=== PATIENT | female | born 1965 | race Caucasian/White ===

== ENCOUNTER 2017-03-04 11:39 | Emergency (ER) | payer OTHER, SELFPAY ==
[~2017-03-04] VITALS: Ht 154.9 cm; Wt 61.2 kg
[~2017-03-04 11:39] MED LIST: BYST5TAB PO; IBUP600T26 PO; PRIL20CA PO; PRIN10TA PO; PROZAC PO; VICO5TAB PO
[2017-03-04] MEDS ORDERED: ASPI81TA21 PO (11:49)
[2017-03-04] MEDS ORDERED: BISO5TAB5 (11:49)
[2017-03-04 12:09] LABS: BASO % 0.3 % (0.0-1.0); EOS # 0.2 K/mm3 (0.0-0.50); EOS % 1.6 % (0.0-3.0); LARGE UNSTAINED CELL # 0.2 K/mm3 (0.0-0.4); LARGE UNSTAINED CELL % 1.8 % (0.0-4.0); LYMPH # 4.2 K/mm3 (1.5-4.5); LYMPH % 35.8 % (24.0-44.0); MEAN CORPUSCULAR HEMOGLOBIN 31.3 pg (27.0-33.0); MEAN CORPUSCULAR HGB CONC 33.7 g/dl (32.0-36.5); MEAN CORPUSCULAR VOLUME 92.8 fl (80.0-96.0); MONO # 0.6 K/mm3 (0.0-0.8); MONO % 5.7 % (0.0-5.0); NEUTROPHILS # 6.1 K/mm3 (1.8-7.7); NEUTROPHILS % 54.8 % (36.0-66.0); PLATELET COUNT, AUTOMATED 250 k/mm3 (150-450); RED CELL DISTRIBUTION WIDTH 12.6 % (11.5-14.5); WHITE BLOOD COUNT 11.1 K/mm3 (4.0-10.0)
--- NOTE | 2017-03-04 12:17 | REP ---
Clinical: Chest pain . Comparison: 07/09/2009 . Findings: The mediastinum and cardiac silhouette are stable and within normal limits for portable technique. The lung win are clear without acute consolidation, effusion, or pneumothorax. Skeletal structures are stable and calcific tendinopathy involving the right shoulder is again noted. Impression: Normal portable chest x-ray Signed by Leoncio Dunn MD 03/04/2017 12:09 P
[2017-03-04 12:40] LABS: ALBUMIN 3.8 GM/DL (3.2-5.2); ALKALINE PHOSPHATASE 122 U/L (45-117); ALT/SGPT 26 U/L (12-78); ANION GAP 7 MEQ/L (8-16); AST/SGOT 14 U/L (15-37); BILIRUBIN,DIRECT < 0.1 MG/DL (0.0-0.2); BILIRUBIN,TOTAL 0.4 MG/DL (0.2-1.0); BLOOD UREA NITROGEN 15 MG/DL (7-18); CALCIUM LEVEL 9.7 MG/DL (8.5-10.1); CARBON DIOXIDE LEVEL 26 MEQ/L (21-32); CHLORIDE LEVEL 103 MEQ/L (98-107); CREATININE FOR GFR 0.59 MG/DL (0.55-1.02); GLOMERULAR FILTRATION RATE > 60.0 (>51); GLUCOSE, FASTING 97 MG/DL (70-105); SODIUM LEVEL 136 MEQ/L (136-145); TOTAL PROTEIN 7.6 GM/DL (6.4-8.2)
--- NOTE | 2017-03-04 14:18 | ECGEPIP ---
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
[2017-03-04 16:58] VITALS: BP 124/79
--- NOTE | 2017-03-04 22:10 | ECGEPIP ---
Stationary ECG Study [facility] - ED Test Date: 2017-03-04 Pat Name: JENNIFER SANTIAGO Department: Room: - Gender: F Neurology Director: allyson : 1965 Requested By: KATY HOU Order Number: [id number] Reading MD: Jose Miguel Montiel Measurements Intervals [place] Rate: 74 P: 42 HI: 150 QRS: 24 QRSD: 82 T: 48 QT: 355 QTc: 396 Interpretive Statements SINUS RHYTHM BENIGN EARLY REPOLARIZATION Electronically Signed On 03-04-2017 22:10:31 EDT by Jose Miguel Montiel
== END 2017-03-04 17:00 | disposition home or self-care (01) ==
LOC: M ED 12:18
DX: R07.89 Other chest pain (principal); R06.02 Shortness of breath; I10 Essential (primary) hypertension; F41.9 Anxiety disorder, unspecified; F32.9 Major depressive disorder, single episode, unspecified; F17.210 Nicotine dependence, cigarettes, uncomplicated; N95.1 Menopausal and female climacteric states; Z79.899 Other long term (current) drug therapy; Z91.041 Radiographic dye allergy status; Z88.4 Allergy status to anesthetic agent; Z88.5 Allergy status to narcotic agent; Z88.8 Allergy status to other drugs, medicaments and biological substances

== ENCOUNTER → 2017-08-06 | Outpatient (REF) | payer OTHER ==
[~2017-08-06] MED LIST changes: +ASPI81TA21 PO; +BISO5TAB5
[2017-08-06 14:57] LABS: PROGESTERONE 0.3 NG/ML
[2017-08-06 14:59] LABS: ESTRADIOL < 19.0 PG/ML; FOLLICLE STIMULATING HORMONE 58.7 mIU/mL
[2017-08-06 15:00] LABS: FREE T4 2.09 NG/DL (0.76-1.46)
[2017-08-10 00:07] LABS: ESTRONE SERUM 88 pg/mL (.)
== END ==
LOC: M LAB REF 13:06
PROVIDERS: ATTEND Obstetrics & Gynecology
DX: N95.1 Menopausal and female climacteric states (principal)

== ENCOUNTER → 2017-10-26 | Outpatient (REF) | payer OTHER ==
[2017-10-26 17:07] LABS: THYROXINE (T4) 15.6 UG/DL (4.5-12.0)
[2017-10-27 08:49] LABS: THYROID PEROXIDASE ANTIBODY < 28.0 U/ML (<60.0)
[2017-10-27 08:50] LABS: TOTAL T3 203.7 NG/DL (60.0-181.0)
== END ==
LOC: M SFHCCLAY 10:25
DX: R94.6 Abnormal results of thyroid function studies (principal)

== ENCOUNTER → 2018-07-15 | Outpatient (REF) | payer OTHER ==
[2018-07-15 11:39] LABS: BASO % 0.3 % (0.0-1.0); EOS # 0.1 10^3/uL (0.0-0.50); EOS % 1.3 % (0.0-3.0); HEMOGLOBIN 13.8 g/dl (12.0-15.5); IMMATURE GRANULOCYTE % 0.2 % (0-3.0); LYMPH # 4.3 10^3/uL (1.5-4.5); LYMPH % 44.6 % (24.0-44.0); MEAN CORPUSCULAR HEMOGLOBIN 31.2 pg (27.0-33.0); MEAN CORPUSCULAR HGB CONC 33.7 g/dl (32.0-36.5); MEAN CORPUSCULAR VOLUME 92.8 fl (80.0-96.0); MONO % 9.9 % (0.0-5.0); NEUTROPHILS # 4.2 10^3/uL (1.8-7.7); NEUTROPHILS % 43.7 % (36.0-66.0); PLATELET COUNT, AUTOMATED 254 10^3/uL (150-450); RED BLOOD COUNT 4.42 10^6/uL (4.00-5.40); RED CELL DISTRIBUTION WIDTH 12.5 % (11.5-14.5); WHITE BLOOD COUNT 9.6 10^3/uL (4.0-10.0)
[2018-07-15 11:43] LABS: AMORPHOUS SEDIMENT SMALL (NEGATIVE); APPEARANCE, URINE HAZY (CLEAR); BACTERIA, URINE AUTO NEGATIVE (NEGATIVE); BILIRUBIN, URINE AUTO NEGATIVE (NEGATIVE); BLOOD, URINE BLOOD 2+ (NEGATIVE); COLOR, URINE YELLOW (YELLOW); GLUCOSE, URINE (UA) AUTO NEGATIVE (NEGATIVE); KETONE, URINE AUTO NEGATIVE (NEGATIVE); LEUKOCYTE ESTERASE, URINE AUTO NEGATIVE (NEGATIVE); MUCUS, URINE SMALL (NEGATIVE); NITRITE, URINE AUTO NEGATIVE (NEGATIVE); PROTEIN, URINE AUTO NEGATIVE (NEGATIVE); RBC, URINE AUTO 3 /HPF (0-3); SPECIFIC GRAVITY URINE AUTO 1.025 (1.002-1.035); SQUAMOUS EPITHELIAL CELL UR AU 6 /HPF (0-6); WBC, URINE AUTO 1 /HPF (0-3)
[2018-07-15 11:54] LABS: INR 0.91; PROTHROMBIN TIME 12.3 SECONDS (12.1-14.4)
[2018-07-15 11:55] LABS: PARTIAL THROMBOPLASTIN TIME 29.9 SECONDS (25.4-37.6)
[2018-07-15 12:04] LABS: CONTROL LINE HCG INT CTR LINE PRESENT; HCG, SERUM QUALITATIVE NEGATIVE (NEGATIVE)
[2018-07-15 12:06] LABS: ANION GAP 8 MEQ/L (8-16); BLOOD UREA NITROGEN 17 MG/DL (7-18); CALCIUM LEVEL 9.2 MG/DL (8.5-10.1); CARBON DIOXIDE LEVEL 26 MEQ/L (21-32); CHLORIDE LEVEL 106 MEQ/L (98-107); CREATININE FOR GFR 0.58 MG/DL (0.55-1.30); GLOMERULAR FILTRATION RATE > 60.0 (>51); GLUCOSE, FASTING 94 MG/DL (70-100); POTASSIUM SERUM 4.8 MEQ/L (3.5-5.1); SODIUM LEVEL 140 MEQ/L (136-145)
== END ==
LOC: M SFHCCLAY 08:54
DX: Z01.818 Encounter for other preprocedural examination (principal)

== ENCOUNTER → 2018-12-27 | Outpatient (REF) | payer OTHER, SELFPAY ==
[2018-12-27 17:01] LABS: HEMATOCRIT 44.5 % (36.0-47.0); HEMOGLOBIN 14.7 g/dl (12.0-15.5); MEAN CORPUSCULAR HEMOGLOBIN 30.7 pg (27.0-33.0); MEAN CORPUSCULAR VOLUME 92.9 fl (80.0-96.0); PLATELET COUNT, AUTOMATED 275 10^3/uL (150-450); RED BLOOD COUNT 4.79 10^6/uL (4.00-5.40)
[2018-12-27 17:11] LABS: ALBUMIN 4.4 GM/DL (3.2-5.2); ALT/SGPT 21 U/L (12-78); BILIRUBIN,TOTAL 0.4 MG/DL (0.2-1.0); BLOOD UREA NITROGEN 8 MG/DL (7-18); CALCIUM LEVEL 9.1 MG/DL (8.5-10.1); CARBON DIOXIDE LEVEL 30 MEQ/L (21-32); CHLORIDE LEVEL 103 MEQ/L (98-107); CREATININE FOR GFR 0.72 MG/DL (0.55-1.30); FREE T4 0.89 NG/DL (0.76-1.46); GLOMERULAR FILTRATION RATE > 60.0 (>51); GLUCOSE, FASTING 96 MG/DL (70-100); SODIUM LEVEL 136 MEQ/L (136-145); THYROID STIMULATING HORMONE 0.241 uIU/ML (0.358-3.740); TOTAL PROTEIN 8.5 GM/DL (6.4-8.2)
[2018-12-27 18:44] LABS: ATYPICAL LYMPH 18 % (0-5); EOSINOPHILS 1 % (0-5); LYMPHOCYTES 34 % (16-52); MONOCYTES 6 % (0-8); NEUTROPHILS 40 % (35-75); PLATELET ESTIMATE NORMAL (NORMAL); SMUDGE CELLS 1+
[2018-12-30 00:08] LABS: ANA (HEP2) Negative (.); Lyme Disease IgG/IgM Antibodie <0.91 ISR (0.00-0.90); Lyme Disease IgM Ab Quantitati <0.80 index (0.00-0.79)
== END ==
LOC: M SFHCCLAY 09:59
PROVIDERS: ATTEND Nurse Practitioner Family
DX: L29.9 Pruritus, unspecified (principal); N63.31 Unspecified lump in axillary tail of the right breast; R59.0 Localized enlarged lymph nodes

== ENCOUNTER → 2019-01-06 | Outpatient (CLI) | payer OTHER ==
--- NOTE | 2019-01-06 14:31 | REP ---
Clinical: Right flank pain . Comparison: 03/04/2017 . Technique: PA and lateral. Findings: The mediastinum and cardiac silhouette are normal. The lung win are clear and without acute consolidation, effusion, or pneumothorax. The skeletal structures are intact and normal. Evidence of prior cervical fixation. Impression: 1. No acute cardiopulmonary process.
--- NOTE | 2019-01-06 15:14 | REP ---
LUMBAR SPINE, FIVE VIEWS: HISTORY: Back pain. There is on acute fracture or subluxation. The L3-4 through L5-S1 intervertebral discs are decreased in height consistent with disc degeneration. Osteophytes are present throughout the lumbar spine. There is narrowing of the right L5-S1 facet joint. IMPRESSION: Degenerative change as described above.
== END ==
LOC: M CLY 13:45
PROVIDERS: ATTEND Family Medicine
DX: R10.9 Unspecified abdominal pain (principal); M51.36 Other intervertebral disc degeneration, lumbar region; M51.37 Other intervertebral disc degeneration, lumbosacral region

== ENCOUNTER → 2019-02-06 | Outpatient (REF) | payer OTHER ==
[2019-02-06 17:54] LABS: HEMATOCRIT 43.1 % (36.0-47.0); HEMOGLOBIN 14.2 g/dl (12.0-15.5); MEAN CORPUSCULAR HEMOGLOBIN 31.9 pg (27.0-33.0); MEAN CORPUSCULAR HGB CONC 32.9 g/dl (32.0-36.5); MEAN CORPUSCULAR VOLUME 96.9 fl (80.0-96.0); PLATELET COUNT, AUTOMATED 261 10^3/uL (150-450); RED BLOOD COUNT 4.45 10^6/uL (4.00-5.40)
[2019-02-06 17:55] LABS: ALBUMIN 4.3 GM/DL (3.2-5.2); ALT/SGPT 17 U/L (12-78); BILIRUBIN,TOTAL 0.3 MG/DL (0.2-1.0); BLOOD UREA NITROGEN 10 MG/DL (7-18); CALCIUM LEVEL 9.1 MG/DL (8.5-10.1); CARBON DIOXIDE LEVEL 29 MEQ/L (21-32); CHLORIDE LEVEL 104 MEQ/L (98-107); CREATININE FOR GFR 0.75 MG/DL (0.55-1.30); GLOMERULAR FILTRATION RATE > 60.0 (>51); GLUCOSE, FASTING 77 MG/DL (70-100); POTASSIUM SERUM 4.4 MEQ/L (3.5-5.1); SODIUM LEVEL 138 MEQ/L (136-145); TOTAL PROTEIN 7.7 GM/DL (6.4-8.2)
[2019-02-06 18:55] LABS: ATYPICAL LYMPH 2 % (0-5); BASOPHILS 2 % (0-4); EOSINOPHILS 1 % (0-5); LYMPHOCYTES 48 % (16-52); MONOCYTES 5 % (0-8); NEUTROPHILS 42 % (35-75); PLATELET ESTIMATE NORMAL (NORMAL)
== END ==
LOC: M SFHCCLAY 11:57
PROVIDERS: ATTEND Family Medicine
DX: R59.0 Localized enlarged lymph nodes (principal); I10 Essential (primary) hypertension

== ENCOUNTER → 2019-02-22 | Outpatient (REF) | payer OTHER ==
[~2019-02-22] MED LIST changes: +LISI-538 PO; +METH25TAB PO
[2019-02-22 13:21] LABS: FREE T3 2.6 PG/ML (2.2-4.0); FREE T4 0.81 NG/DL (0.76-1.46); THYROID STIMULATING HORMONE 6.5 uIU/ML (0.358-3.740)
== END ==
LOC: M LABDRAWC 11:09
PROVIDERS: ATTEND Physician Assistant
DX: E05.90 Thyrotoxicosis, unspecified without thyrotoxic crisis or storm (principal)

== ENCOUNTER → 2019-02-22 | Outpatient (REF) | payer OTHER ==
[2019-02-22 12:08] LABS: INR 0.9; PROTHROMBIN TIME 12.2 SECONDS (12.1-14.4)
[2019-02-22 12:09] LABS: PARTIAL THROMBOPLASTIN TIME 31.3 SECONDS (25.4-37.6)
== END ==
LOC: M LABDRAWC 11:08
PROVIDERS: ATTEND Surgery
DX: Z01.818 Encounter for other preprocedural examination (principal)

== ENCOUNTER → 2019-03-20 | Outpatient (REF) | payer OTHER ==
[2019-03-20 16:44] LABS: FREE T3 2.3 PG/ML (2.2-4.0); FREE T4 0.86 NG/DL (0.76-1.46); THYROID STIMULATING HORMONE 3.21 uIU/ML (0.358-3.740)
== END ==
LOC: M LABDRAWC 16:08
PROVIDERS: ATTEND Physician Assistant
DX: E05.90 Thyrotoxicosis, unspecified without thyrotoxic crisis or storm (principal)

== ENCOUNTER → 2019-03-20 | Outpatient (REF) | payer OTHER ==
[2019-03-20 17:00] LABS: BASO % 0.4 % (0.0-1.0); EOS # 0.1 10^3/uL (0.0-0.50); EOS % 1.5 % (0.0-3.0); HEMOGLOBIN 13.3 g/dl (12.0-15.5); LYMPH % 42.8 % (24.0-44.0); MEAN CORPUSCULAR HEMOGLOBIN 32.2 pg (27.0-33.0); MEAN CORPUSCULAR HGB CONC 32.4 g/dl (32.0-36.5); MEAN CORPUSCULAR VOLUME 99.3 fl (80.0-96.0); MONO # 0.8 10^3/uL (0.0-0.8); MONO % 8.1 % (0.0-5.0); NEUTROPHILS # 4.4 10^3/uL (1.8-7.7); NEUTROPHILS % 47.1 % (36.0-66.0); PLATELET COUNT, AUTOMATED 257 10^3/uL (150-450); RED BLOOD COUNT 4.13 10^6/uL (4.00-5.40); WHITE BLOOD COUNT 9.4 10^3/uL (4.0-10.0)
== END ==
LOC: M SFHCCLAY 11:56
PROVIDERS: ATTEND Family Medicine
DX: R59.0 Localized enlarged lymph nodes (principal); I10 Essential (primary) hypertension

== ENCOUNTER → 2019-04-28 | Outpatient (REF) | payer OTHER, MEDICAID ==
[2019-04-28 17:30] LABS: BLOOD UREA NITROGEN 12 MG/DL (7-18); CREATININE FOR GFR 0.76 MG/DL (0.55-1.30); GLOMERULAR FILTRATION RATE > 60.0 (>51)
== END ==
LOC: M LABDRAWC 16:50
PROVIDERS: ATTEND Neurological Surgery
DX: D35.2 Benign neoplasm of pituitary gland (principal)

== ENCOUNTER → 2019-04-28 | Outpatient (REF) | payer OTHER, MEDICAID ==
[2019-04-28 17:39] LABS: FREE T3 2.7 PG/ML (2.2-4.0); FREE T4 0.86 NG/DL (0.76-1.46); THYROID STIMULATING HORMONE 2.98 uIU/ML (0.358-3.740)
== END ==
LOC: M LABDRAWC 16:52
PROVIDERS: ATTEND Internal Medicine
DX: E05.90 Thyrotoxicosis, unspecified without thyrotoxic crisis or storm (principal)

== ENCOUNTER → 2020-11-14 | Outpatient (REF) | payer OTHER ==
[~2020-11-14] MED LIST changes: +BISO5TAB14; -BISO5TAB5
[2020-11-14 12:00] LABS: BASO % 0.5 % (0.0-1.0); EOS # 0.1 10^3/uL (0.0-0.5); EOS % 1.6 % (0.0-3.0); HEMATOCRIT 41.2 % (36.0-47.0); HEMOGLOBIN 13.4 g/dl (12.0-15.5); LYMPH # 3.5 10^3/uL (1.5-5.0); LYMPH % 40.5 % (24.0-44.0); MEAN CORPUSCULAR HEMOGLOBIN 31.8 pg (27.0-33.0); MEAN CORPUSCULAR HGB CONC 32.5 g/dl (32.0-36.5); MEAN CORPUSCULAR VOLUME 97.9 fl (80.0-96.0); MONO # 0.8 10^3/uL (0.0-0.8); MONO % 8.7 % (0.0-5.0); NEUTROPHILS # 4.2 10^3/uL (1.5-8.5); NEUTROPHILS % 48.4 % (36.0-66.0); PLATELET COUNT, AUTOMATED 260 10^3/uL (150-450); RED BLOOD COUNT 4.21 10^6/uL (4.00-5.40); WHITE BLOOD COUNT 8.6 10^3/uL (4.0-10.0)
[2020-11-14 12:52] LABS: ALBUMIN 3.9 GM/DL (3.2-5.2); ALT/SGPT 20 U/L (12-78); BILIRUBIN,TOTAL 0.3 MG/DL (0.2-1.0); BLOOD UREA NITROGEN 17 MG/DL (7-18); CALCIUM LEVEL 9.8 MG/DL (8.5-10.1); CARBON DIOXIDE LEVEL 27 MEQ/L (21-32); CHLORIDE LEVEL 103 MEQ/L (98-107); CHOLESTEROL LEVEL 276 MG/DL (<200); CHOLESTEROL RISK RATIO 7.666 (<5); CREATININE FOR GFR 0.85 MG/DL (0.55-1.30); FOLATE 7.8 NG/ML (>5.4); FREE T4 0.96 NG/DL (0.76-1.46); GLOMERULAR FILTRATION RATE > 60.0 (>51); GLUCOSE, FASTING 87 MG/DL (70-100); HDL CHOLESTEROL 36 MG/DL (>40); NON-HDL-C 240 MG/DL; POTASSIUM SERUM 4.8 MEQ/L (3.5-5.1); SODIUM LEVEL 137 MEQ/L (136-145); TOTAL PROTEIN 7.3 GM/DL (6.4-8.2); TOTAL T3 118.9 NG/DL (60.0-181.0); TRIGLYCERIDES LEVEL 474 MG/DL (<150); VITAMIN B12 LEVEL 353 PG/ML (247-911)
== END ==
LOC: M SFHCCLAY 08:56
PROVIDERS: ATTEND Family Medicine
DX: I10 Essential (primary) hypertension (principal); R20.2 Paresthesia of skin; R20.0 Anesthesia of skin; E05.90 Thyrotoxicosis, unspecified without thyrotoxic crisis or storm; E78.1 Pure hyperglyceridemia

== ENCOUNTER → 2021-04-03 | Outpatient (CLI) | payer OTHER ==
[~2021-04-03] MED LIST changes: -LISI-538 PO; +LISI20TA33 PO
--- NOTE | 2021-04-03 09:29 | REP ---
INDICATION: RIGHT HIP PAIN COMPARISON: None. TECHNIQUE: Two views right hip. FINDINGS: There is no evidence of acute fracture, dislocation, or intrinsic bone disease.There are mild tendinous calcifications at the superior margin of the greater trochanter and along the lesser trochanter of the proximal femur. The hip joint space is not significantly narrowed. IMPRESSION: No fracture or dislocation. Mild tendinous calcifications at the greater and lesser trochanters of the proximal right femur. <Electronically signed by Karthikeyan Tiwari > 04/03/21 [id number]
== END ==
LOC: M CLY 08:58
PROVIDERS: ATTEND Family Medicine
DX: M25.551 Pain in right hip (principal)

== ENCOUNTER 2021-04-22 13:14 | Emergency (ER) | payer OTHER ==
[~2021-04-22] VITALS: Ht 154.9 cm; Wt 69.4 kg
[2021-04-22 13:15] VITALS: BP 134/63
[2021-04-22] MEDS ORDERED: PROZ10CA7 PO (13:44)
[2021-04-22] MEDS ORDERED: ROSU20TA5 (13:44)
== END 2021-04-22 17:50 | disposition left against medical advice (07) ==
LOC: M ED 13:14
DX: Z53.21 Procedure and treatment not carried out due to patient leaving prior to being seen by health care provider (principal)

== ENCOUNTER → 2021-05-25 | Outpatient (CLI) | payer OTHER ==
[~2021-05-25] MED LIST changes: +PROZ10CA7 PO; +ROSU20TA5
--- NOTE | 2021-05-25 15:59 | REP ---
INDICATION: RT HIP PAIN. COMPARISON: None. TECHNIQUE: Routine scans FINDINGS: The bony signal is normal. The muscles and tendons about the hip are unremarkable. The hip joint is well maintained. There is no evidence of labral injury. There is a small joint effusion. IMPRESSION: Small joint effusion. <Electronically signed by Jean Pierre Henry > 05/25/21 [id number]
== END ==
LOC: M RAD 12:25
PROVIDERS: ATTEND Family Medicine
DX: M25.541 Pain in joints of right hand (principal)

== ENCOUNTER → 2021-11-25 | Outpatient (REF) | payer OTHER | LOC: M SFHCCLAY 13:58 | PROVIDERS: ATTEND Nurse Practitioner Family | DX: R50.9 Fever, unspecified (principal) ==

== ENCOUNTER → 2022-03-13 | Outpatient (REF) | payer OTHER ==
[2022-03-13 16:18] LABS: BASO # 0.1 10^3/uL (0.0-0.2); BASO % 0.6 % (0.0-1.0); EOS # 0.1 10^3/uL (0.0-0.5); EOS % 1.2 % (0.0-3.0); HEMATOCRIT 40.9 % (36.0-47.0); HEMOGLOBIN 13.5 g/dl (12.0-15.5); LYMPH # 3.7 10^3/uL (1.5-5.0); LYMPH % 43.4 % (24.0-44.0); MEAN CORPUSCULAR HEMOGLOBIN 32.6 pg (27.0-33.0); MEAN CORPUSCULAR VOLUME 98.8 fl (80.0-96.0); MONO # 0.6 10^3/uL (0.0-0.8); MONO % 7.4 % (2.0-8.0); PLATELET COUNT, AUTOMATED 228 10^3/uL (150-450); RED BLOOD COUNT 4.14 10^6/uL (4.00-5.40); WHITE BLOOD COUNT 8.5 10^3/uL (4.0-10.0)
[2022-03-13 18:01] LABS: ALBUMIN 4.1 GM/DL (3.2-5.2); ALT/SGPT 19 U/L (12-78); BILIRUBIN,TOTAL 0.4 MG/DL (0.2-1.0); BLOOD UREA NITROGEN 15 MG/DL (7-18); CALCIUM LEVEL 9.9 MG/DL (8.5-10.1); CARBON DIOXIDE LEVEL 31 MEQ/L (21-32); CHLORIDE LEVEL 108 MEQ/L (98-107); CHOLESTEROL LEVEL 129 MG/DL (<200); CHOLESTEROL RISK RATIO 2.931 (<5); CREATININE FOR GFR 0.82 MG/DL (0.55-1.30); FREE T4 0.97 NG/DL (0.76-1.46); GLOMERULAR FILTRATION RATE > 60.0 (>51); GLUCOSE, FASTING 97 MG/DL (70-100); HDL CHOLESTEROL 44 MG/DL (>40); LDL CHOLESTEROL 59 MG/DL (<100); NON-HDL-C 85 MG/DL; POTASSIUM SERUM 5.3 MEQ/L (3.5-5.1); SODIUM LEVEL 141 MEQ/L (136-145); TOTAL PROTEIN 7.4 GM/DL (6.4-8.2); TRIGLYCERIDES LEVEL 131 MG/DL (<150)
[2022-03-13 18:02] LABS: PROLACTIN 5.4 NG/ML
== END ==
LOC: M SFHCCLAY 10:55
PROVIDERS: ATTEND Family Medicine
DX: D49.7 Neoplasm of unspecified behavior of endocrine glands and other parts of nervous system (principal); E05.90 Thyrotoxicosis, unspecified without thyrotoxic crisis or storm; E78.1 Pure hyperglyceridemia; I10 Essential (primary) hypertension

== ENCOUNTER → 2023-05-26 | Outpatient (CLI) | payer OTHER ==
[~2023-05-26] MED LIST changes: -ROSU20TA5; +ROSU20TA61
== END ==
LOC: M WUC 13:22
PROVIDERS: ATTEND Nurse Practitioner Family
DX: M79.671 Pain in right foot (principal)

== ENCOUNTER → 2023-06-07 | Outpatient (REF) | payer OTHER ==
[2023-06-07 18:11] LABS: HEMATOCRIT 43.5 % (36.0-47.0); HEMOGLOBIN 14.2 g/dl (12.0-15.5); MEAN CORPUSCULAR HEMOGLOBIN 32.1 pg (27.0-33.0); MEAN CORPUSCULAR HGB CONC 32.6 g/dl (32.0-36.5); MEAN CORPUSCULAR VOLUME 98.4 fl (80.0-96.0); PLATELET COUNT, AUTOMATED 247 10^3/uL (150-450); RED BLOOD COUNT 4.42 10^6/uL (4.00-5.40); WHITE BLOOD COUNT 8.7 10^3/uL (4.0-10.0)
[2023-06-07 18:59] LABS: ERYTHROCYTE SEDIMENTATION RATE 44 mm/hr (0-30)
[2023-06-07 22:18] LABS: C REACTIVE PROTEIN QUANTITATIV < 0.40 MG/DL (<1.0)
[2023-06-07 22:19] LABS: CPK CREATINE PHOSPHOKINASE 74 U/L (34-145); RHEUMATOID FACTOR QUANT < 3.5 IU/ML (<14)
[2023-06-07 22:33] LABS: ALBUMIN 4.3 G/DL (3.2-5.2); ALKALINE PHOSPHATASE 83 U/L (46-116); ALT/SGPT 19 U/L (7.0-40); AST/SGOT 18 U/L (<34); BILIRUBIN,TOTAL 0.5 MG/DL (0.3-1.2); BLOOD UREA NITROGEN 18 MG/DL (9-23); CALCIUM LEVEL 10.2 MG/DL (8.5-10.1); CARBON DIOXIDE LEVEL 29 MMOL/L (20-31); CHLORIDE LEVEL 103 MMOL/L (98-107); CHOLESTEROL LEVEL 169 MG/DL (<200); CHOLESTEROL RISK RATIO 4.17 (<5); CK-MB VALUE MASS < 1.0 NG/ML (<3.6); CREATININE FOR GFR 1.01 MG/DL (0.55-1.30); FREE T4 1.04 NG/DL (0.89-1.76); GLOMERULAR FILTRATION RATE 59.9 (>51); GLUCOSE, FASTING 90 MG/DL (60-100); HDL CHOLESTEROL 40.5 MG/DL (>40); LDL CHOLESTEROL 72.9 MG/DL (<100); MB/CK RELATIVE INDEX 1.35 (< OR =4); NON-HDL-C 128.5 MG/DL; PROLACTIN 6.46 NG/ML; SODIUM LEVEL 137 MMOL/L (136-145); TOTAL PROTEIN 7.7 G/DL (5.7-8.2); TOTAL T3 110.8 NG/DL (60.0-181.0); TRIGLYCERIDES LEVEL 278 MG/DL (<150)
== END ==
LOC: M SFHCCLAY 11:12
PROVIDERS: ATTEND Family Medicine
DX: M79.10 Myalgia, unspecified site (principal); R53.1 Weakness; E78.1 Pure hyperglyceridemia; E05.90 Thyrotoxicosis, unspecified without thyrotoxic crisis or storm; D49.7 Neoplasm of unspecified behavior of endocrine glands and other parts of nervous system

== ENCOUNTER → 2023-06-30 | Outpatient (REF) | payer OTHER | LOC: M SFHCCLAY 08:56 | PROVIDERS: ATTEND Family Medicine | DX: M79.10 Myalgia, unspecified site (principal) ==

== ENCOUNTER → 2023-11-15 | Outpatient (REF) | payer OTHER ==
[2023-11-15 18:43] LABS: BASO % 0.4 % (0.0-1.0); EOS # 0.1 10^3/uL (0.0-0.5); EOS % 1.1 % (0.0-3.0); HEMATOCRIT 43.7 % (36.0-47.0); HEMOGLOBIN 14.2 g/dl (12.0-15.5); LYMPH # 3.5 10^3/uL (1.5-5.0); LYMPH % 36.5 % (24.0-44.0); MEAN CORPUSCULAR HEMOGLOBIN 32.6 pg (27.0-33.0); MEAN CORPUSCULAR HGB CONC 32.5 g/dl (32.0-36.5); MEAN CORPUSCULAR VOLUME 100.2 fl (80.0-96.0); MONO # 0.8 10^3/uL (0.0-0.8); MONO % 8.3 % (2.0-8.0); NEUTROPHILS # 5.2 10^3/uL (1.5-8.5); NEUTROPHILS % 53.5 % (36.0-66.0); PLATELET COUNT, AUTOMATED 279 10^3/uL (150-450); RED BLOOD COUNT 4.36 10^6/uL (4.00-5.40); WHITE BLOOD COUNT 9.7 10^3/uL (4.0-10.0)
[2023-11-15 19:04] LABS: ALBUMIN 4.2 G/DL (3.2-5.2); ALKALINE PHOSPHATASE 78 U/L (46-116); ALT/SGPT 16 U/L (7.0-40); AST/SGOT 18 U/L (<34); BILIRUBIN,TOTAL 0.4 MG/DL (0.3-1.2); BLOOD UREA NITROGEN 18 MG/DL (9-23); CALCIUM LEVEL 10.3 MG/DL (8.5-10.1); CARBON DIOXIDE LEVEL 30 MMOL/L (20-31); CHLORIDE LEVEL 103 MMOL/L (98-107); CHOLESTEROL LEVEL 247 MG/DL (<200); CHOLESTEROL RISK RATIO 5.17 (<5); CREATININE FOR GFR 0.88 MG/DL (0.55-1.30); GLOMERULAR FILTRATION RATE > 60.0 (>51); GLUCOSE, FASTING 88 MG/DL (60-100); HDL CHOLESTEROL 47.7 MG/DL (>40); LDL CHOLESTEROL 153.3 MG/DL (<100); NON-HDL-C 199.3 MG/DL; POTASSIUM SERUM 5.4 MMOL/L (3.5-5.1); SODIUM LEVEL 138 MMOL/L (136-145); TOTAL PROTEIN 7.5 G/DL (5.7-8.2); TRIGLYCERIDES LEVEL 230 MG/DL (<150)
== END ==
LOC: M SFHCCLAY 10:14
PROVIDERS: ATTEND Family Medicine
DX: I10 Essential (primary) hypertension (principal); R10.84 Generalized abdominal pain; E78.1 Pure hyperglyceridemia

== ENCOUNTER → 2023-11-16 | Outpatient (REF) | payer OTHER | LOC: M SFHCCLAY 12:43 | PROVIDERS: ATTEND Family Medicine | DX: K21.9 Gastro-esophageal reflux disease without esophagitis (principal); R10.84 Generalized abdominal pain ==

== ENCOUNTER → 2023-11-23 | Outpatient (CLI) | payer OTHER ==
[~2023-11-23] MED LIST changes: +READI-CAT 2 As Ordered ONE
== END ==
LOC: M RAD 12:56
PROVIDERS: ATTEND Family Medicine
DX: K21.9 Gastro-esophageal reflux disease without esophagitis (principal); R10.84 Generalized abdominal pain

== ENCOUNTER → 2024-05-16 | Outpatient (CLI) | payer OTHER ==
[~2024-05-16] MED LIST changes: -READI-CAT 2 As Ordered ONE
[2024-05-16 17:03] LABS: ALBUMIN 3.7 G/DL (3.2-5.2); ALKALINE PHOSPHATASE 83 U/L (46-116); ALT/SGPT 17 U/L (7.0-40); AST/SGOT 20 U/L (<34); BILIRUBIN,TOTAL 0.4 MG/DL (0.3-1.2); BLOOD UREA NITROGEN 21 MG/DL (9-23); CALCIUM LEVEL 9.9 MG/DL (8.5-10.1); CARBON DIOXIDE LEVEL 29 MMOL/L (20-31); CHLORIDE LEVEL 106 MMOL/L (98-107); CHOLESTEROL LEVEL 226 MG/DL (<200); CHOLESTEROL RISK RATIO 6.09 (<5); CREATININE FOR GFR 0.93 MG/DL (0.55-1.30); GLOMERULAR FILTRATION RATE > 60.0 (>51); GLUCOSE, FASTING 90 MG/DL (60-100); HDL CHOLESTEROL 37.1 MG/DL (>40); HEMATOCRIT 40.3 % (36.0-47.0); HEMOGLOBIN 13.4 g/dl (12.0-15.5); LDL CHOLESTEROL 115.7 MG/DL (<100); MAGNESIUM LEVEL 1.8 MG/DL (1.8-2.4); MEAN CORPUSCULAR HEMOGLOBIN 32.8 pg (27.0-33.0); MEAN CORPUSCULAR HGB CONC 33.3 g/dl (32.0-36.5); MEAN CORPUSCULAR VOLUME 98.5 fl (80.0-96.0); NON-HDL-C 188.9 MG/DL; PLATELET COUNT, AUTOMATED 228 10^3/uL (150-450); POTASSIUM SERUM 5.3 MMOL/L (3.5-5.1); RED BLOOD COUNT 4.09 10^6/uL (4.00-5.40); SODIUM LEVEL 136 MMOL/L (136-145); THYROID STIMULATING HORMONE 2.453 uIU/ML (0.55-4.78); TOTAL PROTEIN 7.1 G/DL (5.7-8.2); TOTAL T3 110.1 NG/DL (60.0-181.0); TRIGLYCERIDES LEVEL 366 MG/DL (<150); WHITE BLOOD COUNT 8.7 10^3/uL (4.0-10.0)
[2024-05-16 17:04] LABS: FREE T4 1.11 NG/DL (0.89-1.76)
== END ==
LOC: M WHC 10:06
PROVIDERS: ATTEND Family Medicine
DX: Z12.31 Encounter for screening mammogram for malignant neoplasm of breast (principal)

== ENCOUNTER → 2024-11-17 | Outpatient (CLI) | payer OTHER ==
[~2024-11-17] MED LIST changes: +METH-1386 PO; -METH25TAB PO; -ROSU20TA61; +ROSU20TA86
== END ==
LOC: M CLY 10:08
PROVIDERS: ATTEND Family Medicine
DX: M54.6 Pain in thoracic spine (principal); R07.81 Pleurodynia; M54.12 Radiculopathy, cervical region

== ENCOUNTER → 2024-11-17 | Outpatient (CLI) | payer OTHER | LOC: M CLY 10:01 | PROVIDERS: ATTEND Family Medicine | DX: M54.6 Pain in thoracic spine (principal); R07.81 Pleurodynia; M54.12 Radiculopathy, cervical region ==

== ENCOUNTER → 2025-04-23 | Outpatient (REF) | payer OTHER | LOC: M SFHCCLAY 10:24 | PROVIDERS: ATTEND Physician Assistant | DX: R30.0 Dysuria (principal) ==

== ENCOUNTER → 2025-05-02 | Outpatient (REF) | payer OTHER ==
[~2025-05-02] MED LIST changes: +PROZ10CA11 PO; -PROZ10CA7 PO
[2025-05-02 17:56] LABS: APPEARANCE, URINE HAZY (CLEAR); BACTERIA, URINE AUTO 1+ (NEGATIVE); BILIRUBIN, URINE AUTO NEGATIVE (NEGATIVE); BLOOD, URINE BLOOD 2+ (NEGATIVE); GLUCOSE, URINE (UA) AUTO NEGATIVE (NEGATIVE); KETONE, URINE AUTO TRACE mg/dL (NEGATIVE); LEUKOCYTE ESTERASE, URINE AUTO 1+ (NEGATIVE); MUCUS, URINE SMALL (NEGATIVE); NITRITE, URINE AUTO NEGATIVE (NEGATIVE); PROTEIN, URINE AUTO NEGATIVE (NEGATIVE); RBC, URINE AUTO 10 /HPF (0-3); SPECIFIC GRAVITY URINE AUTO 1.017 (1.002-1.035); SQUAMOUS EPITHELIAL CELL UR AU 1 /HPF (0-6); UROBILINOGEN, URINE AUTO 0.2 mg/dL (0.0-2.0); WBC, URINE AUTO 51 /HPF (0-3)
== END ==
LOC: M SFHCCLAY 11:21
PROVIDERS: ATTEND Physician Assistant
DX: R30.0 Dysuria (principal)

== ENCOUNTER → 2025-05-29 | Outpatient (REF) | payer OTHER | LOC: M SFHCCAPE 16:21 | PROVIDERS: ATTEND Physician Assistant Medical | DX: N39.0 Urinary tract infection, site not specified (principal); R30.0 Dysuria ==